=== PATIENT | female | born 1980 | race Caucasian/White ===

== ENCOUNTER 2016-11-26 09:39 | Emergency (ER) | payer OTHER ==
[~2016-11-26] VITALS: Ht 170.2 cm; Wt 83.9 kg
[2016-11-26] MEDS ORDERED: PAROXETINE HCL10 MG PO (10:09)
[2016-11-26] MEDS ORDERED: OMEPRAZOLE40 MG PO (10:09)
[2016-11-26] MEDS ORDERED: NORCO 7.5-3251 EACH PO (11:08)
== END 2016-11-26 11:29 | disposition home or self-care (01) ==
LOC: ED 09:39
DX: S92.341A Displaced fracture of fourth metatarsal bone, right foot, initial encounter for closed fracture (principal); Z98.51 Tubal ligation status; Z90.49 Acquired absence of other specified parts of digestive tract; Z79.899 Other long term (current) drug therapy; W10.9XXA Fall (on) (from) unspecified stairs and steps, initial encounter
CPT/HCPCS: 73630; 99283

== ENCOUNTER 2021-05-06 01:56 | Emergency (ER) | payer OTHER ==
[~2021-05-06] VITALS: Ht 170.2 cm; Wt 83.9 kg
[~2021-05-06 01:56] MED LIST: NORCO 7.5-3251 EACH PO; OMEPRAZOLE40 MG PO; PAROXETINE HCL10 MG PO
[2021-05-06] MEDS ORDERED: NORGESTIMATE-E1 EAC1 PO (02:08)
[2021-05-06] MEDS ORDERED: BENADRYL25 MG PO (02:08)
[2021-05-06] MEDS ORDERED: HYDROXYZINE HCL25 MG PO (02:08)
[2021-05-06] MEDS ORDERED: VENTOLIN HFA18 GM INH (02:09)
[2021-05-06] MEDS ORDERED: medrol dose pack (02:16)
== END 2021-05-06 02:25 | disposition home or self-care (01) ==
LOC: ED 01:56
DX: B34.9 Viral infection, unspecified (principal); Z20.822 Contact with and (suspected) exposure to COVID-19; J45.909 Unspecified asthma, uncomplicated; Z79.51 Long term (current) use of inhaled steroids; Z79.899 Other long term (current) drug therapy
CPT/HCPCS: 96372; 99284; J1100

== ENCOUNTER 2021-07-03 21:18 | Emergency (ER) | payer OTHER ==
[~2021-07-03] VITALS: Ht 170.2 cm; Wt 92.5 kg
[~2021-07-03 21:18] MED LIST changes: +BENADRYL25 MG PO; +HYDROXYZINE HCL25 MG PO; +NORGESTIMATE-E1 EAC1 PO; +VENTOLIN HFA18 GM INH; +medrol dose pack
== END 2021-07-03 23:57 | disposition home or self-care (01) ==
LOC: ED 21:18
DX: T63.301A Toxic effect of unspecified spider venom, accidental (unintentional), initial encounter (principal); J45.909 Unspecified asthma, uncomplicated; Z79.899 Other long term (current) drug therapy
CPT/HCPCS: 99282

== ENCOUNTER 2021-10-19 06:48 | Emergency (ER) | payer OTHER ==
[~2021-10-19] VITALS: Ht 170.2 cm; Wt 92.5 kg
[~2021-10-19 06:48] MED LIST changes: +HYDROCODON-ACE1 EA10 PO; +MACROBID 100 M100 MG PO; +ONDANSETRON ODT8 MG PO
[2021-10-19] MEDS ORDERED: PREDNISONE20 MG PO (07:15)
== END 2021-10-19 07:20 | disposition home or self-care (01) ==
LOC: ED 06:48
DX: M54.50 Low back pain, unspecified (principal)
CPT/HCPCS: 99283

== ENCOUNTER 2023-08-20 10:06 | Emergency (ER) | payer OTHER ==
[~2023-08-20] VITALS: Ht 170.2 cm; Wt 96.9 kg
[~2023-08-20 10:06] MED LIST changes: +DICYCLOMINE HCL20 MG PO; +ONDANSETRON ODT4 MG PO; +PREDNISONE20 MG PO
[2023-08-20] MEDS ORDERED: ACETAMINOPHEN 500 MG TAB PO ONE (10:30)
[2023-08-20] MEDS ORDERED: DEXAMETHASONE SOD PHOS 10 MG/ML VIAL PO ONE (10:30)
[2023-08-20 11:10] VITALS: BP 156/105
== END 2023-08-20 11:17 | disposition home or self-care (01) ==
LOC: ED 10:06
DX: J02.9 Acute pharyngitis, unspecified (principal); Z79.899 Other long term (current) drug therapy
CPT/HCPCS: 87651; 99283; A9270; J1100

== ENCOUNTER 2024-05-23 06:59 | Emergency (ER) | payer OTHER ==
[~2024-05-23] VITALS: Ht 170.2 cm; Wt 93.0 kg
[2024-05-23 07:30] LABS: HEMATOCRIT 41.9 % (35.0-50.0); HEMOGLOBIN 13.5 g/dL (12.0-18.0); MCH 26.3 (27-36); MCHC 32.2 g/dl (30-36); MCV 81.5 fl (81-99); PLATELET COUNT 545 K/uL (140-440); RBC 5.14 M/ul (4.3-5.7); RDW 14.2 (10.5-15.0)
[2024-05-23] MEDS ORDERED: ondansetron HCL 4 MG/2 ML VIAL IV ONE (07:30)
[2024-05-23] MEDS ORDERED: KETOROLAC TROMETHAMINE 15 MG/ML VIAL IV ONE (07:30)
[2024-05-23] MEDS ORDERED: SODIUM CHLORIDE 0.9% 1,000 ML IV PRN (07:30)
[2024-05-23 07:47] LABS: ALBUMIN 3.7 g/dL (3.4-5.0); ALBUMIN/GLOBULIN RATIO 0.9 (1.1-2.4); ANION GAP 15.7 (7-21); BILIRUBIN, TOTAL 0.6 mg/dL (0.2-1.0); BUN/CREATININE RATIO 11.84 (6.0-28.6); CALCIUM 9.2 mg/dL (8.5-10.1); CREATININE, SERUM 0.76 mg/dL (0.55-1.02); POTASSIUM 3.7 mmol/L (3.5-5.1); PROTEIN, TOTAL 7.8 g/dL (6.4-8.2)
[2024-05-23 07:48] LABS: BANDS, MANUAL DIFF 4; BASOPHILS, MANUAL DIFF 2; LYMPHOCYTES, MANUAL DIFF 20; MONOCYTES, MANUAL DIFF 2; NEUTROPHILS, MANUAL DIFF 72
[2024-05-23 07:56] LABS: BILIRUBIN, URINE NEGATIVE (negative); BLOOD/HGB, URINE SMALL (Negative); KETONE, URINE TRACE (Negative); LEUK ESTERASE, URINE NEGATIVE (negative); NITRITE, URINE NEGATIVE (negative); PH, URINE 6.5 (5-7)
[2024-05-23 08:03] LABS: BACTERIA, URINE RARE /hpf (negative); CASTS, URINE NONE SEEN \\lpf; COLLECTION TYPE, URINE CLEAN CATCH; CRYSTALS, URINE NONE SEEN (0-1+); EPITHELIAL CELLS, URINE 0 /lpf (0-1+); RED BLOOD CELLS, URINE 0-1 /hpf (0-5); REFLEX CULTURE, URINE No (No); WHITE BLOOD CELLS, URINE 0-1 /HPF (0-5)
[2024-05-23] MEDS ORDERED: ONDANSETRON ODT8 MG PO (08:55)
[2024-05-23 09:02] VITALS: BP 145/83
== END 2024-05-23 09:02 | disposition home or self-care (01) ==
LOC: ED 06:59
PROVIDERS: Emergency Medicine
DX: R11.2 Nausea with vomiting, unspecified (principal); R10.32 Left lower quadrant pain; J45.909 Unspecified asthma, uncomplicated; Z79.899 Other long term (current) drug therapy
CPT/HCPCS: 36415; 74177; 80053; 81001; 83690; 84703; 85025; 96375; 99284-25; J1885; J2405; J7030; Q9967